=== PATIENT | female | born 1985 | race African-American/Black ===

== ENCOUNTER 2017-03-26 09:40 | Emergency (ER) | payer OTHER ==
[~2017-03-26] VITALS: Ht 177.8 cm; Wt 77.7 kg
[2017-03-26] MEDS ORDERED: ULTRAM50 MG PO (11:27)
[2017-03-26 11:47] VITALS: BP 135/92
== END 2017-03-26 11:49 | disposition home or self-care (01) ==
LOC: EME 09:40
DX: S60.212A Contusion of left wrist, initial encounter (principal); X39.8XXA Other exposure to forces of nature, initial encounter; W20.8XXA Other cause of strike by thrown, projected or falling object, initial encounter; Y99.0 Civilian activity done for income or pay; Z88.0 Allergy status to penicillin
CPT/HCPCS: 73110; 99281; 99284